=== PATIENT | male | born 1930 | race American Indian/Alaskan Native ===

== ENCOUNTER 2017-02-18 10:36 | Emergency (ER) | payer OTHER ==
[2017-02-18 10:42] VITALS: BMI 31.9
--- NOTE | 2017-02-18 12:00 | PDOC ---
History of Present Illness - General History Source: Patient, Family - History of Present Illness Timing/Duration: reports: other Associated Symptoms: reports: cough. denies: chest pain/soreness, wheezing <Gerber Velasquez - Last Filed: 02/18/17 13:56> <Aj Licea - Last Filed: 02/20/17 11:43> - General Chief Complaint: Respiratory Stated Complaint: COUGH Time Seen by Provider: 02/18/17 11:41 Past History - Past Medical History Anemia: No Asthma: No Cancer: No Cardiac Disorders: Yes CVA: No COPD: No CHF: No Dementia: No Diabetes: Yes (NIDDM) GI Disorders: Yes (ACID REFLUX) Disorders: No HTN: Yes Hypercholesterolemia: Yes Liver Disease: No Seizures: No Thyroid Disease: No - Surgical History Abdominal Surgery: No Appendectomy: Yes (COLONOSCOPY) Cardiac Surgery: No Cholecystectomy: No Lung Surgery: No Neurologic Surgery: No Orthopedic Surgery: No - Immunization History Immunization Up to Date: Yes (FLU AND PNA 2013) - Suicide/Smoking/Psychosocial Hx Smoking Status: No Smoking History: Never smoked Have you smoked in the past 12 months: No Number of Cigarettes Smoked Daily: 0 Hx Alcohol Use: No Drug/Substance Use Hx: No Substance Use Type: None Hx Substance Use Treatment: No <Gerber Velasquez - Last Filed: 02/18/17 13:56> <Aj Licea - Last Filed: 02/20/17 11:43> - Past Medical History Allergies/Adverse Reactions: Allergies Allergy/AdvReac Type Severity Reaction Status Date / Time Penicillins Allergy Severe Rash Verified 02/18/17 10:42 Sulfa (Sulfonamide Allergy Intermediate swollen Verified 02/18/17 10:42 Antibiotics) lips Home Medications: Ambulatory Orders Dutasteride [Avodart] 0.5 mg PO DAILY 07/15/11 Fosinopril Sodium [Monopril] 10 mg PO DAILY 07/15/11 Metformin HCl [Glucophage] 1,000 mg PO BID 07/15/11 Metoprolol Tartrate [Lopressor] 50 mg PO BID 07/15/11 Simvastatin [Zocor] 20 mg PO DAILY 07/15/11 Terazosin HCl 5 mg PO DAILY 07/15/11 Sitagliptin Phosphate [Januvia] 100 mg PO HS 01/23/13 Omeprazole [Prilosec (RX)] 2 tab PO HS #0 05/18/13 Aspirin [ASA -] 81 mg PO ONCE 02/18/17 Ferrous Sulfate 325 mg PO ONCE 02/18/17 Hydrochlorothiazide [Hctz -] 12.5 mg PO DAILY 02/18/17 Montelukast Na [Singulair -] 10 mg PO ONCE 02/18/17 Tamsulosin HCl 0.4 mg PO ONCE 02/18/17 Review of Systems - Review of Systems Constitutional: No: Chills, Fever Respiratory: Yes: Cough, Shortness of Breath. No: Wheezing Cardiac (ROS): No: Chest Pain <Gerber Velasquez - Last Filed: 02/18/17 13:56> *Physical Exam - Vital Signs Last Vital Signs Temp Pulse Resp BP Pulse Ox 98.0 F 67 20 142/72 98 02/18/17 10:38 02/18/17 10:38 02/18/17 10:38 02/18/17 10:38 02/18/17 11:29 - Physical Exam General Appearance: Yes: Appropriately Dressed. No: Apparent Distress HEENT: positive: Normal Voice Neck: positive: Supple Respiratory/Chest: positive: Lungs Clear, Normal Breath Sounds. negative: Respiratory Distress Cardiovascular: positive: Regular Rate, S1, S2 Extremity: negative: Pedal Edema Integumentary: positive: Dry, Warm Neurologic: positive: Fully Oriented, Alert, Normal Mood/Affect <Gerber Velasquez - Last Filed: 02/18/17 13:56> - Vital Signs Last Vital Signs Temp Pulse Resp BP Pulse Ox 98.2 F 62 18 125/65 97 02/18/17 14:06 02/18/17 14:06 02/18/17 14:06 02/18/17 14:06 02/18/17 14:06 <Aj Licea - Last Filed: 02/20/17 11:43> ED Treatment Course - LABORATORY CBC & Chemistry Diagram: 02/18/17 12:00 02/18/17 12:00 - RADIOLOGY Radiology Studies Ordered: Category Date Time Status CHEST X-RAY PORTABLE* [RAD] Stat Radiology 02/18/17 11:42 Ordered <Gerber Velasquez - Last Filed: 02/18/17 13:56> - LABORATORY CBC & Chemistry Diagram: 02/18/17 12:00 02/18/17 12:00 - ADDITIONAL ORDERS Additional order review: 02/18/17 12:00 RBC 4.01 MCV 89.6 MCHC 33.0 RDW 14.9 MPV 8.0 Neutrophils % 65.6 Lymphocytes % 23.3 Monocytes % 8.2 Eosinophils % 2.6 Basophils % 0.3 <Aj Licea - Last Filed: 02/20/17 11:43> Medical Decision Making - Medical Decision Making 02/18/17 11:53 86 yo M, h/o HTN, HLD, DM, gastritis, BIB daughter for mostly non-productive cough x 1 month. Seen at an center 3 weeks ago and had neg CXR per daughter. Also evaluated by his PMD and started on tessalon perles w/ no relief. States cough now productive and has SOB "sometimes". No hemoptysis, night sweats, weight loss, f/c. or leg swelling. Non-smoker. See exam Cough x 1 month Neg CXR 3 weeks ago at Completed tessalon w/ no relief Pt well chiquita and stable w/ unremarkable exam Cough possibly viral vs due to gastritis or RIZWAN-I that pt takes for his HTN -will check labs and get another CXR today -anticipate discharge w/ PMD f/u if w/u negative 02/18/17 12:00 02/18/17 13:20 EKG, CXR and labs unremarkable. Pt stable for discharge to continue to f/u with his PMD <Gerber Velasquez - Last Filed: 02/18/17 13:56> - Medical Decision Making 02/20/17 11:43 The patient was seen and evaluated in conjunction with JADEN Velasquez under my direct supervision, ancillary studies were reviewed. I agree with the plan as outlined by JADEN Velasquez . <Aj Licea - Last Filed: 02/20/17 11:43> *DC/Admit/Observation/Transfer <Gerber Velasquez - Last Filed: 02/18/17 13:56> <Aj Licea - Last Filed: 02/20/17 11:43> Diagnosis at time of Disposition: Cough - Discharge Dispostion Disposition: HOME Condition at time of disposition: Good - Referrals Referrals: Kam Daniel MD [Primary Care Provider] - - Patient Instructions Printed Discharge Instructions: Cough Additional Instructions: Your labs and CXR were normal today Please follow up with your PMD - Post Discharge Activity
[2017-02-18 12:12] LABS: BASOPHIL 0.3 % (0-2.0); EOSINOPHIL 2.6 % (0-4.5); MCH 29.6 pg (25.7-33.7); MEAN CELL VOLUME 89.6 fl (80-96); NEUTROPHILS 65.6 % (42.8-82.8); PLATELET COUNT 232 K/MM3 (134-434); RDW 14.9 % (11.9-15.9); WHITE BLOOD COUNT 9.1 K/mm3 (4.0-10.0)
[2017-02-18 12:29] LABS: URINE APPEARANCE SLCLOUDY; URINE BILIRUBIN NEGATIVE (NEGATIVE); URINE BLOOD NEGATIVE (NEGATIVE); URINE COLOR YELLOW; URINE GLUCOSE (UA) NEGATIVE (NEGATIVE); URINE KETONE NEGATIVE (NEGATIVE); URINE NITRITE NEGATIVE (NEGATIVE); URINE PROTEIN NEGATIVE (NEGATIVE); URINE UROBILINOGEN NEGATIVE mg/dL (0.2-1.0)
[2017-02-18 13:10] LABS: ALBUMIN 3.3 g/dl (3.4-5.0); ANION GAP 7 (8-16); BILIRUBIN,TOTAL 0.3 mg/dL (0.2-1.0); CALCIUM 8.6 mg/dL (8.5-10.1); CO2 28 mmol/L (21-32); CREATININE 1.3 mg/dL (0.7-1.3); GLUCOSE,RANDOM 112 mg/dL (74-106); SGOT/AST 20 U/L (15-37); SGPT/ALT 27 U/L (12-78)
[2017-02-18 13:12] LABS: ALK PHOS 63 U/L (45-117); CPK 56 IU/L (39-308); TROPONIN I < 0.02 ng/ml (0.00-0.05)
[2017-02-18 14:06] VITALS: BP 125/65; PULSE 62; TEMP 98.2
[2017-02-18 21:21] LABS: URINE LEUK ESTERASE Negative (NEGATIVE)
--- NOTE | 2017-02-19 12:32 | EKG ---
Test Reason : Blood Pressure : / mmHG Vent. Rate : 062 BPM Atrial Rate : 062 BPM P-R Int : 156 ms QRS Dur : 082 ms QT Int : 402 ms P-R-T Axes : 067 -14 036 degrees QTc Int : 408 ms NORMAL SINUS RHYTHM NORMAL ECG WHEN COMPARED WITH ECG OF 15-MAY-2006 23:51, CRITERIA FOR INFERIOR INFARCT ARE NO LONGER PRESENT Confirmed by ERNESTINA VERA MD ([id number]) on 02/19/2017 12:32:24 PM Referred By: Confirmed By:ERNESTINA VERA MD
== END 2017-02-18 14:06 | disposition home or self-care (01) ==
LOC: JER 10:36
DX: R05 Cough (principal); I10 Essential (primary) hypertension; E78.5 Hyperlipidemia, unspecified; E11.9 Type 2 diabetes mellitus without complications; I51.9 Heart disease, unspecified
CPT/HCPCS: 36415; 71010-TC; 80053; 81003; 82550; 83880; 84484; 85025; 93005; 93010; 99283-25

== ENCOUNTER 2017-06-28 16:25 | Emergency (ER) | payer OTHER ==
[2017-06-28 16:31] VITALS: TEMP 97.8; BMI 32.4
--- NOTE | 2017-06-28 17:06 | PDOC ---
History of Present Illness - General Chief Complaint: Urinary Problem Stated Complaint: URINARY PROBLEM Time Seen by Provider: 06/28/17 16:52 - History of Present Illness Initial Comments: 06/28/17 17:19 The patient is an 86 year old male with a history of HTN, HLD, DM, BPH who presents for evaluation of urinary retention. The patient reports that he has a history of BPH for which he takes flomax and reports and inability to urinate beginning this morning prompting him to present to an urgent care for evaluation. He was then sent to the ER for further management given his urinary retention. He endorses some mild right sided back pain, but otherwise denies fevers, chills, SOB, chest pain, nausea, vomiting, abdominal pain, or changes with bowel movements. Past History - Past Medical History Allergies/Adverse Reactions: Allergies Allergy/AdvReac Type Severity Reaction Status Date / Time Penicillins Allergy Severe Rash Verified 06/28/17 16:31 Sulfa (Sulfonamide Allergy Intermediate swollen Verified 06/28/17 16:31 Antibiotics) lips Home Medications: Ambulatory Orders Dutasteride [Avodart] 0.5 mg PO DAILY 07/15/11 Fosinopril Sodium [Monopril] 10 mg PO DAILY 07/15/11 Metformin HCl [Glucophage] 1,000 mg PO BID 07/15/11 Metoprolol Tartrate [Lopressor] 50 mg PO BID 07/15/11 Simvastatin [Zocor] 20 mg PO DAILY 07/15/11 Terazosin HCl 5 mg PO DAILY 07/15/11 Sitagliptin Phosphate [Januvia] 100 mg PO HS 01/23/13 Omeprazole [Prilosec (RX)] 2 tab PO HS #0 05/18/13 Aspirin [ASA -] 81 mg PO ONCE 02/18/17 Ferrous Sulfate 325 mg PO ONCE 02/18/17 Hydrochlorothiazide [Hctz -] 12.5 mg PO DAILY 02/18/17 Montelukast Na [Singulair -] 10 mg PO ONCE 02/18/17 Tamsulosin HCl 0.4 mg PO ONCE 02/18/17 Anemia: No Asthma: No Cancer: No Cardiac Disorders: Yes CVA: No COPD: No CHF: No Dementia: No Diabetes: Yes (NIDDM) GI Disorders: Yes (ACID REFLUX) Disorders: No HTN: Yes Hypercholesterolemia: Yes Liver Disease: No Seizures: No Thyroid Disease: No - Surgical History Abdominal Surgery: No Appendectomy: Yes (COLONOSCOPY) Cardiac Surgery: No Cholecystectomy: No Lung Surgery: No Neurologic Surgery: No Orthopedic Surgery: No - Immunization History Immunization Up to Date: Yes (FLU AND PNA 2013) - Suicide/Smoking/Psychosocial Hx Smoking Status: No Smoking History: Never smoked Have you smoked in the past 12 months: No Number of Cigarettes Smoked Daily: 0 Hx Alcohol Use: No Drug/Substance Use Hx: No Substance Use Type: None Hx Substance Use Treatment: No Review of Systems - Review of Systems Comments:: 06/28/17 17:22 Constitutional: No fevers, chills, fatigue, malaise HEENT: No Rhinorrhea, nasal congestion, visual changes Cardiovascular: No chest pain, syncope, palpitations, lightheadedness Respiratory: No Cough, SOB, Hemoptysis, Gastrointestinal: No Abdominal pain, Nausea, Vomiting, Constipation, Diarrhea, Melena Genitourinary: Urinary Retention. No Dysuria, Hematuria, Flank pain Musculoskeletal: No Myalgia, arthralgia Skin: No rashes, itching, bruising, pallor Neurologic: No Headache, Dizziness, Numbness, Weakness, or Tingling Psychiatric: No Hallucinations. No SI or HI *Physical Exam - Vital Signs Last Vital Signs Temp Pulse Resp BP Pulse Ox 97.8 F 68 18 116/67 99 06/28/17 16:28 06/28/17 16:28 06/28/17 16:28 06/28/17 16:28 06/28/17 16:28 - Physical Exam Comments: 06/28/17 17:23 General Appearance: Nourished. No Apparent Distress HEENT: EOMI, MICHELLE. No Pharyngeal Erythema, Tonsillar Exudate, Tonsillar Erythema Neck: No Cervical Lymphadenopathy Respiratory/Chest: Lungs Clear, Normal Breath Sounds. No Crackles, Rales, Rhonchi, Wheezing Cardiovascular: Regular Rhythm, Regular Rate. No Murmur, Gallops, Rubs Gastrointestinal/Abdominal: Normal Bowel Sounds, Soft. Mild suprapubic discomfort with palpation. No Guarding, Rebound, Musculoskeletal: No CVA Tenderness Extremity: Normal Capillary Refill Integumentary: Normal Color, Dry, Warm Neurologic: Fully Oriented, Alert, Normal Mood/Affect, Normal Response, Medical Decision Making - Medical Decision Making 06/28/17 17:24 The patient is an 86 year old male with a history of HTN, HLD, DM, BPH who presents for evaluation of urinary retention. Given the patient's history of BPH, it is likely his current urinary retention is due to his BPH. We will place a alejandra catheter and obtain a ua to evaluate further. We will continue to monitor and reassess. 06/28/17 17:55 Alejandra catheter was placed successfully with drainage of 400ccs of clear urine. UA is unremarkable. The patient reports significant improvement in his symptoms. The patient states that he follows with a urologist at [facility]. We are comfortable discharging the patient home at this time with the alejandra catheter in place and urology follow up. We discussed the results, plan, and return precautions with the patient and his family who voiced understanding and are agreeable with the plan. *DC/Admit/Observation/Transfer Diagnosis at time of Disposition: Urinary retention due to benign prostatic hyperplasia - Discharge Dispostion Disposition: HOME Condition at time of disposition: Good Admit: No - Referrals - Patient Instructions Printed Discharge Instructions: How to Care for Your Alejandra Catheter -- Male, DI for Urinary Retention in Men Additional Instructions: Please return to the ER if you experience concerning or worsening symptoms including worsening pain, fevers, difficulty breathing, or vomiting. Your urine was normal here in the ER. Your urinary retention is likely due to your BPH. We have placed a alejandra catheter here in the ER to help manage your symptoms. It is extremely important that you call to schedule a follow up appointment with your urologist within 1-2 days to discuss your ER visit and further management of your urinary retention. - Post Discharge Activity
[2017-06-28 17:59] LABS: URINE APPEARANCE CLEAR; URINE BILIRUBIN NEGATIVE (<2.0 mg/dL); URINE BLOOD NEGATIVE (NEGATIVE); URINE COLOR STRAW; URINE GLUCOSE (UA) NEGATIVE (NEGATIVE); URINE KETONE NEGATIVE (NEGATIVE); URINE LEUK ESTERASE NEGATIVE (NEGATIVE); URINE NITRITE NEGATIVE (NEGATIVE); URINE UROBILINOGEN NEGATIVE mg/dL (0.2-1.0)
[2017-06-28 18:00] LABS: URINE PROTEIN 1+ (NEGATIVE)
[2017-06-28 18:01] LABS: EPI CELLS RARE /HPF (FEW)
[2017-06-28 18:21] VITALS: BP 120/74; PULSE 70
--- NOTE | 2017-06-29 02:08 | PDOC ---
Attending Attestation - Resident Resident Name: Napoleon Adkins - ED Attending Attestation I have performed the following: I have examined & evaluated the patient, The case was reviewed & discussed with the resident, I agree w/resident's findings & plan, Exceptions are as noted - HPI HPI: 06/29/17 02:06 86 yo male p/w urinary retention. He has a history of BPH ans is followed by a urologist - Physicial Exam PE: 06/29/17 02:08 86 yo male ambulatory to [facility] ER head ncat neck supple lungs cta b/l cvs [id number] abd protuberant ,no rebound distended bladder upon arrival musculoskeletal exam -no cva tenderness extremities - no erythema neuro axox3,ambulatory skin warm and dry - Medical Decision Making 06/29/17 02:10 pt felt much better after aeljandra placement ,>[id number] urine obtained discharged w leg bag plan followup with his urologist
--- NOTE | 2017-07-02 08:01 | PDOC ---
Patient Follow-up (Call Back) - Post ED Follow - Up Condition at time of discharge: Good Disposition at time of original discharge: HOME Reason for Call Back: Abnwl. Microbiology (Urine culture final report shows Enterococcus faecalis. Sensitivity to Levaquin. Spoke with son will pick it up at [facility] pharmacy later today)
== END 2017-06-28 18:52 | disposition home or self-care (01) ==
LOC: JER 16:25
PROC: 0T9B70Z Drainage of Bladder with Drainage Device, Via Natural or Artificial Opening (ICD-10-PCS; principal; 2017-06-28)
DX: N40.1 Benign prostatic hyperplasia with lower urinary tract symptoms (principal); R33.8 Other retention of urine; I10 Essential (primary) hypertension; E11.9 Type 2 diabetes mellitus without complications; Z79.84 Long term (current) use of oral hypoglycemic drugs; E78.00 Pure hypercholesterolemia, unspecified; K21.9 Gastro-esophageal reflux disease without esophagitis
CPT/HCPCS: 51702; 81003; 81015; 87086; 87186; 99282-25